=== PATIENT | female | born 1985 | race Caucasian/White ===

== ENCOUNTER → 2018-01-29 08:36 | Outpatient (CLI) | payer OTHER, SELFPAY | PROVIDERS: Family Provider Physician Assistant; PCP Physician Assistant | DX: Z23 Encounter for immunization (principal) | CPT/HCPCS: 90471; 90686 ==

== ENCOUNTER → 2018-10-13 08:51 | Outpatient (CLI) | payer OTHER, SELFPAY ==
--- NOTE | 2018-10-13 12:32 | DI.CT.S_ITS ---
PROCEDURE: CT SINUS SCREEN WO CON INDICATIONS: SINUSITIS TECHNIQUE: Noncontrast 3.0 mm axial images acquired from the frontal sinuses to the mid-sella, with coronal and sagittal reformats. For radiation dose reduction, the following was used: automated exposure control, adjustment of mA and/or kV according to patient size. COMPARISON: None. FINDINGS: Image quality: Excellent. Severe opacification of both maxillary sinuses. There scattered foci of gas bubbles, bilaterally although left slightly greater than right. Near complete opacification of the ethmoid air cells also present bilaterally. Partial opacification and air fluid level present within both sphenoid sinuses. There is near-complete opacification of the right frontal sinus. Minimal inferior left frontal sinus mucosal thickening. The mastoids appear clear. Ostiomeatal Complexes: Ostiomeatal complexes are opacified bilaterally. No Flash cells. Miscellaneous: Visualized intra-orbital contents are normal. No arnav bullosa or paradoxical turbinate curvature. No nasal septal deviation. IMPRESSION: Severe pansinusitis as above, with relative sparing of the left frontal sinus. Scattered foci of gas within both maxillary sinuses (left greater than right) suggests acute disease. Dictated by: Jese Alba M.D. on 10/13/2018 at 15:30 Approved by: Jese Alba M.D. on 10/13/2018 at 15:37
== END ==
PROVIDERS: Family Provider Physician Assistant; PCP Physician Assistant; Visit Provider Hospitalist
DX: J32.4 Chronic pansinusitis (principal); J34.89 Other specified disorders of nose and nasal sinuses
CPT/HCPCS: 70486

== ENCOUNTER → 2018-12-17 09:13 | Outpatient (CLI) | payer OTHER, SELFPAY ==
--- NOTE | 2018-12-17 | DI.CT.S_ITS ---
PROCEDURE: CT SINUS SCREEN WO CON INDICATIONS: CHRONIC PANSINUSITIS TECHNIQUE: Noncontrast 3.0 mm axial images acquired from the frontal sinuses to the mid-sella, with coronal and sagittal reformats. For radiation dose reduction, the following was used: automated exposure control, adjustment of mA and/or kV according to patient size. COMPARISON: [facility], CT, CT SINUS SCREEN WO CON, 10/13/2018, 12:11. FINDINGS: Image quality: Excellent. Maxillary Sinuses: There is moderate mucosal thickening seen within the left maxillary sinus. Mild to moderate mucosal thickening is seen within the inferior right maxillary sinus. The medial bowser of maxillary sinuses are demineralized. Ethmoid Air Cells: No bony remodeling or destruction. Moderate mucosal thickening seen within the ethmoid air cells. Ethmoid air cell bony septations are demineralized. Sphenoid Sinuses: No bony remodeling or destruction. Dxlk-[id number]-voemydlh mucosal thickening is seen within the left sphenoid sinus. Frontal Sinuses: No bony remodeling or destruction. Mild mucosal thickening is seen within the inferior frontal sinuses. Ostiomeatal Complexes: The right ostiomeatal complex is narrowed, yet patent. The left ostiomeatal complex is completely opacified. There is demineralization seen of the left uncinate process. Miscellaneous: Visualized intra-orbital contents are normal. No arnav bullosa or paradoxical turbinate curvature. There is mild rightward nasal septal deviation. IMPRESSION: Improved paranasal sinus disease compared to the prior CT examination. There is bony demineralization are seen, which are consistent with chronic sinusitis. Complete opacification of the left ostiomeatal complex. Dictated by: Sudhir Alvares M.D. on 12/17/2018 at 8:58 Approved by: Sudhir Alvares M.D. on 12/17/2018 at 9:01
== END ==
PROVIDERS: Family Provider Physician Assistant; PCP Physician Assistant; Visit Provider Otolaryngology
DX: J32.4 Chronic pansinusitis (principal)
CPT/HCPCS: 70486

== ENCOUNTER → 2019-03-08 09:16 | Outpatient (CLI) | payer OTHER, SELFPAY | PROVIDERS: PCP Physician Assistant | DX: Z23 Encounter for immunization (principal) | CPT/HCPCS: 90471; 90686 ==

== ENCOUNTER → 2020-02-14 10:49 | Outpatient (CLI) | payer OTHER, SELFPAY ==
[2020-02-14 11:13] LABS: COVID19 -Nasal RAPID Negative (Negative)
== END ==
PROVIDERS: PCP Physician Assistant; Visit Provider Physician Assistant
DX: Z11.59 Encounter for screening for other viral diseases (principal)
CPT/HCPCS: 87635

== ENCOUNTER → 2020-03-13 13:55 | Outpatient (CLI) | payer OTHER, SELFPAY | PROVIDERS: PCP Physician Assistant; Referring Provider Internal Medicine; Visit Provider Internal Medicine | DX: Z23 Encounter for immunization (principal) | CPT/HCPCS: 90471; 90686 ==

== ENCOUNTER → 2020-04-19 08:27 | Outpatient (CLI) | payer OTHER, SELFPAY ==
[2020-04-19] MEDS: COVID-19 VACC(MODERNA-1)/PF 100 MCG/0.5 ML VIAL IM (08:34)
== END ==
PROVIDERS: PCP Physician Assistant; Visit Provider Internal Medicine
DX: Z23 Encounter for immunization (principal)
CPT/HCPCS: 0011A; 91301

== ENCOUNTER → 2020-05-16 08:22 | Outpatient (CLI) | payer OTHER, SELFPAY ==
[2020-05-16] MEDS: COVID-19 VACC #2, MRNA(MOD) 100 MCG/0.5 ML VIAL IM (08:25)
== END ==
PROVIDERS: PCP Physician Assistant; Visit Provider Internal Medicine
DX: Z23 Encounter for immunization (principal)
CPT/HCPCS: 0012A; 91301

== ENCOUNTER 2020-10-27 15:34 | Emergency (ER) | payer OTHER, SELFPAY ==
[2020-10-27 15:43] VITALS: BP 110/74; PULSE 90; RESP 19; TEMP 37; O2SAT 100; BMI 25.8
--- NOTE | 2020-10-27 16:49 | ED.SKABFB ---
HPI - Skin/Abscess/Foreign Bdy General Chief complaint: Skin/Abscess/Foreign Body Stated complaint: INFECTION ON BUTT Time Seen by Provider: 10/27/20 16:37 Source: patient Mode of arrival: Family Vehicle Limitations: no limitations History of Present Illness HPI narrative: Patient is a 35-year-old female who is here for evaluation of what was initially stated as a infection on her buttocks. She stated that the symptoms started earlier this week. She did have some diarrhea but that seems to have improved. She has quite a bit of discomfort with urinating or bowel movements. States that her labia is also swollen. Has burning around her anus. No fevers. Has not tried anything for the symptoms prior to arrival. Related Data Home Medications Medication Instructions Recorded Confirmed cetirizine 10 mg tablet (Aller-Tracy) 10 mg PO DAILY 11/03/18 11/30/18 Previous Rx's Medication Instructions Recorded acyclovir 400 mg tablet 400 mg PO TID 10 Days #30 tab 10/27/20 valacyclovir 1 gram tablet 1,000 mg PO BID 10 Days #20 tab 10/27/20 Allergies Allergy/AdvReac Type Severity Reaction Status Date / Time Penicillins [PENICILLINS] Allergy Severe Anaphalaxis/Throat Verified 10/27/20 15:47 Closes Review of Systems Constitutional Constitutional: Denies fever(s) Gastrointestinal Gastrointestinal: Reports as per HPI Genitourinary Genitourinary: Reports as per HPI Integumentary/Breasts Skin/Breast: Reports as per HPI Hematologic/Lymphatic On Anticoagulants: No Patient History Medical History Neuropathy Surgical History Status post tubal ligation Social History Smoking Status: Former smoker Tobacco: How many years used: 7 second hand exposure: Yes alcohol intake: current substance use type: does not use Smoking Status: Former smoker alcohol intake frequency: 0-2 drinks per day Substance Use Type: does not use Exam Initial Vital Signs Initial Vital Signs: Vital Signs Temperature 98.6 F 10/27/20 15:43 Pulse Rate 90 10/27/20 15:43 Respiratory Rate 10/27/20 15:43 Blood Pressure 110/74 10/27/20 15:43 Pulse Oximetry 100 10/27/20 15:43 [facility] Head: normal to inspection and normocephalic Resp Effort & Inspection: normal respiratory effort Cardio Rate: regular rate GI Other: see skin section Skin Other: Patient has lesions located around her anus that appear to be herpetic in nature. There were no specific vesicles however they do look like areas that there were vesicles that have been ruptured. This does seem to extend up into the posterior portion of the labia as well. Minimal surrounding erythema but does appear to be more irritation than cellulitis. Neuro General: patient alert and patient awake Extrem General: normal to inspection Psych Appearance: grossly normal and well kempt Course Vital Signs Vital signs: Vital Signs - 8 hr 10/27/20 15:43 10/27/20 17:07 Temperature 98.6 F Pulse Rate 90 88 Respiratory Rate 19 18 Blood Pressure 110/74 122/76 Pulse Oximetry 100 100 MDM - Skin/Abscess/Foreign Bdy MDM Narrative Medical decision making narrative: A viral culture was obtained however I am unsure of how well this is going to work because there were no vesicles that could be on roofed. Her physical exam is consistent with herpes. She states that this is a possibility is she has had sexual partners in the past that are positive for herpes. She states she is not concerned about any other sexually transmitted infections. Given her presentation we will start her on antivirals. She was given 2 prescriptions. She was told to take fill the valacyclovir if she could however this medication can be expensive so she was given a prescription for acyclovir as well to use if needed she will discard this if she can fill the valacyclovir. She was given return precautions. She expressed understanding and agreement. Discharge Plan Departure Patient Disposition: Home Clinical Impression: HSV infection Instructions: Genital Herpes Activity Restrictions/Additional Instructions: A culture was pending at the time of your discharge. We will contact you with positive results. I recommend that you 1st attempt the valacyclovir as this medications taken less times a day. It can be expensive so a prescription for acyclovir was also given to you to use if the valacyclovir is too expensive. Prescriptions: New acyclovir 400 mg tablet 400 mg PO TID 10 Days Qty: 30 RF: 0 valacyclovir 1 gram tablet 1,000 mg PO BID 10 Days Qty: 20 RF: 0 No Action cetirizine [Aller-Tracy] 10 mg tablet 10 mg PO DAILY RF: 0 Referrals: Jammie Menendez PA-C [Primary Care Provider] -
[2020-10-27 17:07] VITALS: BP 122/76; PULSE 88; RESP 18; O2SAT 100
== END 2020-10-27 17:09 | disposition home or self-care (01) ==
PROVIDERS: Emergency Provider Emergency Medicine; PCP Physician Assistant
DX: A60.00 Herpesviral infection of urogenital system, unspecified (principal)
CPT/HCPCS: 87252; 99281; 99282

== ENCOUNTER → 2021-02-06 09:00 | Outpatient (CLI) | payer OTHER, SELFPAY | PROVIDERS: PCP Physician Assistant; Referring Provider Internal Medicine; Visit Provider Internal Medicine | DX: Z23 Encounter for immunization (principal) | CPT/HCPCS: 90471; 90686 ==

== ENCOUNTER 2022-01-13 23:02 | Emergency (ER) | payer OTHER, SELFPAY ==
[2022-01-13 23:09] VITALS: BP 154/92; PULSE 105; RESP 20; TEMP 36.7; O2SAT 99; BMI 26.6
--- NOTE | 2022-01-13 23:15 | ED.GENADULT ---
HPI - General Adult General Chief complaint: Shortness of Breath/Dyspnea Stated complaint: sob x2 days Time Seen by Provider: 01/13/22 23:06 Source: patient Mode of arrival: Ambulatory History of Present Illness HPI narrative: 36-year-old female who is here for evaluation of shortness of breath the past 2 days. She describes it as not being able to take a deep breath in. Has had a dry cough. Tested herself at home for COVID yesterday and it was negative. Denies fevers. No chest pain. Did recently get a new pet but has never had issues in the past with this. No recent travel. No lower extremity swelling. Not on control. No other new exposures. Does report to be somewhat anxious. Related Data Home Medications Medication Instructions Recorded Confirmed cetirizine 10 mg tablet (Aller-Tracy) 10 mg PO DAILY 11/03/18 11/30/18 Allergies Allergy/AdvReac Type Severity Reaction Status Date / Time Penicillins [PENICILLINS] Allergy Severe Anaphalaxis/Throat Verified 10/27/20 15:47 Closes Review of Systems Constitutional Constitutional: Reports system reviewed and no additional complaints, except as documented ENT Ears, Nose, Mouth, and Throat: Reports system reviewed and no additional complaints, except as documented Cardiovascular Cardiovascular: Reports system reviewed and no additional complaints, except as documented Respiratory Respiratory: Reports system reviewed and no additional complaints, except as documented Integumentary/Breasts Skin/Breast: Reports system reviewed and no additional complaints, except as documented Hematologic/Lymphatic On Anticoagulants: No Allergic/Immunologic Allergic/Immunologic: Reports system reviewed and no additional complaints, except as documented Patient History Medical History Neuropathy Surgical History Status post tubal ligation Social History Smoking Status: Former smoker Tobacco: How many years used: 7 second hand exposure: Yes alcohol intake: current substance use type: does not use Smoking Status: Former smoker alcohol intake frequency: 0-2 drinks per day Substance Use Type: does not use Exam Initial Vital Signs Initial Vital Signs: Vital Signs Temperature 98.1 F 01/13/22 23:09 Pulse Rate 105 H 01/13/22 23:09 Respiratory Rate 20 01/13/22 23:09 Blood Pressure 154/92 H 01/13/22 23:09 Pulse Oximetry 99 01/13/22 23:09 Oxygen Delivery Method 01/13/22 23:09 Const General: cooperative HENMT Head: normal to inspection Resp Effort & Inspection: normal respiratory effort Auscultation: clear to auscultation bilaterally Cardio Rate: regular rate Rhythm: regular rhythm Neuro General: patient alert and patient awake Extrem General: No edema Psych Appearance: grossly normal and well kempt Course Orders Ordered: ED Orders 01/13/22 23:13 Measure peak expiratory flow ONCE RT Consult Eval and Treat Now 01/13/22 23:15 Complete Blood Count AUTO DIFF Stat Comprehensive Metabolic Panel Stat Lactate (Lactic Acid) Stat 01/13/22 23:16 XR chest 1V Stat 01/13/22 23:18 EKG-12 Lead Stat 01/13/22 23:20 COVID19 -Nasal RAPID/Pre-Proc Stat 01/14/22 00:25 D Dimer Stat Discontinued Medications Albuterol (Albuterol 2.5 Mg/3 Ml Neb (Adult)) 2.5 mg INH NOW ONE Stop: 01/14/22 00:56 Last Admin: 01/14/22 00:58 Dose: 2.5 mg Documented By: TIFFANIE Albuterol (Albuterol Hfa Prepack) 1 box MISC SEEINSTR ONE Stop: 01/14/22 01:23 Lorazepam (Lorazepam 2 Mg/Ml Inj) 1 mg IV NOW ONE Stop: 01/13/22 23:16 Last Admin: 01/13/22 23:25 Dose: 1 mg Documented By: TIFFANIE Vital Signs Vital signs: Vital Signs - 8 hr 01/13/22 23:09 01/14/22 00:34 01/14/22 00:43 Temperature 98.1 F Pulse Rate 105 H 96 H Respiratory Rate 20 Blood Pressure 154/92 H 111/65 Pulse Oximetry 99 97 Oxygen Delivery Method Room Air 01/14/22 00:43 Temperature Pulse Rate 98 H Respiratory Rate Blood Pressure Pulse Oximetry 95 Oxygen Delivery Method Medical Decision Making Lab Data Lab results reviewed: Yes I reviewed the patient's lab results. Result diagrams: 01/13/22 23:15 01/13/22 23:15 Labs: Lab Results 01/13/22 01/13/22 01/13/22 Range/Units 23:15 23:15 23:15 WBC 8.2 (4.5-11.0) X10^3/uL RBC 4.65 (4.0-5.2) X10^6/uL Hgb 15.0 (12.0-16.0) g/dL Hct 41.6 (36-46) % MCV 89.3 (80-100) fL MCH 32.2 (26-34) PG MCHC 36.1 H (30-36) % RDW 12.7 (11.6-14.8) % Plt Count 269 (150-400) X10^3/uL Neut % (Auto) Not Reportable Lymph % (Auto) Not Reportable [place] % (Auto) Not Reportable Eos % (Auto) Not Reportable Baso % (Auto) Not Reportable Lymph # (Auto) Not Reportable [place] # (Auto) Not Reportable Baso # (Auto) Not Reportable Total Counted 100 Seg Neutrophils % 55.0 (38-70) % Lymphocytes % (Manual) 37.0 (25-45) % Monocytes % (Manual) 5.0 (2-11) % Eosinophils % (Manual) 3.0 (2-4) % Neutrophils # (Manual) 4510 (8390-7946) /uL RBC Morphology Normal morphology D-Dimer (<500) ng/ml Sodium 140 (137-145) mmol/L Potassium 3.7 (3.4-5.1) mmol/L Chloride 107 (98-107) mmol/L Carbon Dioxide 22 (22-32) mmol/L BUN 7 (7-17) mg/dL Creatinine 0.94 (0.52-1.04) mg/dL Estimated GFR > 60 (>60) mL/min BUN/Creatinine Ratio 7.4 (6-22) Glucose 93 (70-100) mg/dL Lactate 1.3 (0.7-2.1) mmol/L Calcium 9.6 (8.4-10.2) mg/dL Total Bilirubin 0.4 (0.2-1.3) mg/dL AST 22 (14-36) IU/L ALT 16 (<35) IU/L Alkaline Phosphatase 52 (38-126) U/L Total Protein 7.9 (6.3-8.2) g/dL Albumin 4.6 (3.5-5.0) g/dL Globulin 3.3 (1.7-4.1) g/dL Albumin/Globulin Ratio 1.4 (1.0-2.8) SARS-CoV-2 (PCR) (Negative) 01/13/22 01/13/22 Range/Units 23:15 23:20 WBC (4.5-11.0) X10^3/uL RBC (4.0-5.2) X10^6/uL Hgb (12.0-16.0) g/dL Hct (36-46) % MCV (80-100) fL MCH (26-34) PG MCHC (30-36) % RDW (11.6-14.8) % Plt Count (150-400) X10^3/uL Neut % (Auto) Lymph % (Auto) [place] % (Auto) Eos % (Auto) Baso % (Auto) Lymph # (Auto) [place] # (Auto) Baso # (Auto) Total Counted Seg Neutrophils % (38-70) % Lymphocytes % (Manual) (25-45) % Monocytes % (Manual) (2-11) % Eosinophils % (Manual) (2-4) % Neutrophils # (Manual) (8514-3897) /uL RBC Morphology D-Dimer 333 (<500) ng/ml Sodium (137-145) mmol/L Potassium (3.4-5.1) mmol/L Chloride (98-107) mmol/L Carbon Dioxide (22-32) mmol/L BUN (7-17) mg/dL Creatinine (0.52-1.04) mg/dL Estimated GFR (>60) mL/min BUN/Creatinine Ratio (6-22) Glucose (70-100) mg/dL Lactate (0.7-2.1) mmol/L Calcium (8.4-10.2) mg/dL Total Bilirubin (0.2-1.3) mg/dL AST (14-36) IU/L ALT (<35) IU/L Alkaline Phosphatase (38-126) U/L Total Protein (6.3-8.2) g/dL Albumin (3.5-5.0) g/dL Globulin (1.7-4.1) g/dL Albumin/Globulin Ratio (1.0-2.8) SARS-CoV-2 (PCR) Negative (Negative) Imaging Data Chest x-ray: Radiologist's Impression: [address] [address] XRay Report Signed Patient: Jocelyn Xiao MR#: [id number] : 1985 Acct:[id number] Age/Sex: 36 / F Date of Service: 01/13/22 Loc: ED Accession Number: [id number] ?? Procedure: XR chest 1V Ordering Provider: Kashmir Muller D.O. PROCEDURE:? XR CHEST 1V ? INDICATIONS:? SOB ? TECHNIQUE:? One view of the chest was acquired.? ? COMPARISON:? None. ? FINDINGS:? ? Surgical changes and devices:? None.? ? Lungs and pleura:? Lungs are clear.? No pleural effusions or pneumothorax.? ? Mediastinum:? Mediastinal contours appear normal.? Heart size is normal.? ? Bones and chest wall:? No suspicious bony lesions.? Overlying soft tissues appear unremarkable.? ? IMPRESSION:? ? 1.? No acute cardiopulmonary disease. ? ? ? Dictated by: Cesar Ho M.D. on 01/13/2022 at 23:57 ? ? Approved by: Cesar Ho M.D. on 01/13/2022 at 23:58 ECG Data Attestation: I personally reviewed and interpreted this ECG as follows: Interpretation: Sinus rhythm Ventricular rate 99 Normal axis Normal QRS Normal QTC No ST T wave changes MDM Narrative Medical decision making narrative: Chest x-ray is unremarkable, EKG is unremarkable. Lungs are clear. Afebrile. No leukocytosis. COVID was negative. D-dimer is negative. No lower extremity swelling. Not clinically in heart failure. No arrhythmia noted. No pneumonia noted on the chest x-ray. No indication for antibiotics. Some improvement with the Ativan but states she still can not take a very deep breath. Was given albuterol which helped her symptoms somewhat. Was sent home with a prescription for albuterol. No indication for steroids. No indication for further radiologic studies. She was given return precautions. She expressed understanding and agreement. Discharge Plan Departure Patient Disposition: Home Clinical Impression: Shortness of Breath Instructions: DI for Shortness of Breath Activity Restrictions/Additional Instructions: You can use the albuterol inhaler as needed as it did seem to help your symptoms somewhat here in the ER. If you develop any new symptoms to include fevers, worsening problems breathing or any other new symptoms please return to the emergency department for further evaluation. Prescriptions: No Action cetirizine [Aller-Tracy] 10 mg tablet 10 mg PO DAILY Referrals: Jammie Menendez PA-C [Primary Care Provider] -
--- NOTE | 2022-01-13 23:16 | DI.RAD.S_ITS ---
PROCEDURE: XR CHEST 1V INDICATIONS: SOB TECHNIQUE: One view of the chest was acquired. COMPARISON: None. FINDINGS: Surgical changes and devices: None. Lungs and pleura: Lungs are clear. No pleural effusions or pneumothorax. Mediastinum: Mediastinal contours appear normal. Heart size is normal. Bones and chest wall: No suspicious bony lesions. Overlying soft tissues appear unremarkable. IMPRESSION: 1. No acute cardiopulmonary disease. Dictated by: Cesar Ho M.D. on 01/13/2022 at 23:57 Approved by: Cesar Ho M.D. on 01/13/2022 at 23:58
[2022-01-13 23:25] LABS: Hematocrit 41.6 % (36-46); Mean Corpuscular HGB Conc 36.1 % (30-36); Mean Corpuscular Hemoglobin 32.2 PG (26-34); Mean Corpuscular Volume 89.3 fL (80-100); Platelet Count 269 X10^3/uL (150-400); Red Blood Cell Count 4.65 X10^6/uL (4.0-5.2); Red Cell Distribution Width 12.7 % (11.6-14.8); White Blood Cell Count 8.2 X10^3/uL (4.5-11.0)
[2022-01-13] MEDS: LORazepam 2 MG/ML INJ 1 MG IV (23:25)
[2022-01-13 23:27] LABS: Add Manual Diff / Slide Review YES
[2022-01-13 23:44] LABS: Alanine Aminotransferase 16 IU/L (<35); Albumin 4.6 g/dL (3.5-5.0); Albumin Globulin Ratio 1.4 (1.0-2.8); Alkaline Phosphatase 52 U/L (38-126); Aspartate Aminotransferase 22 IU/L (14-36); BUN Creatinine Ratio 7.4 (6-22); Bilirubin Total 0.4 mg/dL (0.2-1.3); Blood Urea Nitrogen 7 mg/dL (7-17); Calcium 9.6 mg/dL (8.4-10.2); Carbon Dioxide 22 mmol/L (22-32); Chloride 107 mmol/L (98-107); Estimated Glomerular Filt Rate > 60 mL/min (>60); Globulin 3.3 g/dL (1.7-4.1); Glucose 93 mg/dL (70-100); HEMOLYSIS < 15 (0-50); Potassium 3.7 mmol/L (3.4-5.1); Sodium 140 mmol/L (137-145); Total Protein 7.9 g/dL (6.3-8.2)
[2022-01-13 23:55] LABS: Lactate (Lactic Acid) 1.3 mmol/L (0.7-2.1)
[2022-01-13 23:56] LABS: Neutrophils Absolute Manual 4510 /uL (3000-5900); RBC Morphology Normal Morphology; Total Cells Counted 100
[2022-01-14 00:28] LABS: COVID19 -Nasal RAPID Negative (Negative)
[2022-01-14 00:32] LABS: D Dimer 333 ng/ml (<500)
[2022-01-14 00:34] VITALS: PULSE 96; O2SAT 97
[2022-01-14 00:43] VITALS: BP 111/65; PULSE 98; O2SAT 95
[2022-01-14] MEDS: ALBUTEROL 2.5 MG/3 ML NEB (ADULT) INH (00:58)
--- NOTE | 2022-01-14 01:15 | PC.NURSE ---
Patient re assessed after neb treatment, she reports moderate improvement in breathing and is able to breathe deeper. Patient appears more relaxed. Respirations equal, regular and unlabored. No acute distress noted.
[2022-01-14] MEDS: ALBUTEROL HFA PREPACK 1 BOX MISC (01:27)
[2022-01-14 01:40] VITALS: BP 115/74; PULSE 98; RESP 20; O2SAT 100
== END 2022-01-14 01:41 | disposition home or self-care (01) ==
PROVIDERS: Emergency Provider Emergency Medicine; PCP Physician Assistant
DX: R06.02 Shortness of breath (principal); R05.9 Cough, unspecified; Z20.822 Contact with and (suspected) exposure to COVID-19
CPT/HCPCS: 36415; 71045; 80053; 83605; 85007; 85025; 85379; 87635; 93005; 96374; 99284; C9803; J2060; J7613

== ENCOUNTER → 2022-02-19 15:08 | Outpatient (CLI) | payer OTHER, SELFPAY | PROVIDERS: Referring Provider Internal Medicine; Visit Provider Internal Medicine | DX: Z23 Encounter for immunization (principal) | CPT/HCPCS: 90471; 90686 ==

== ENCOUNTER → 2023-03-03 15:04 | Outpatient (CLI) | payer OTHER, SELFPAY | PROVIDERS: Referring Provider Family Medicine; Visit Provider Family Medicine | DX: Z23 Encounter for immunization (principal) | CPT/HCPCS: 90471; 90686 ==

== ENCOUNTER → 2024-02-10 18:06 | Outpatient (CLI) | payer OTHER, SELFPAY | PROVIDERS: Referring Provider Internal Medicine; Visit Provider Internal Medicine | DX: Z23 Encounter for immunization (principal) | CPT/HCPCS: 90471; 90656 ==